=== PATIENT | male | born 1960 | race Caucasian/White ===

== ENCOUNTER → 2017-11-20 10:44 | Outpatient (CLI) | payer BC, SELFPAY ==
--- NOTE | 2017-11-20 10:44 | CDU_ITS ---
Rt. Velocities/BP Lt. Velocities/BP Prox CCA 95.6/22.9 cm/sec. Prox CCA 115.0/38.1 cm/sec. Mid CCA 96.7/28.1 cm/sec. Mid CCA 88.5/27.0 cm/sec. Dist CCA 95.6/30.5 cm/sec. Dist CCA 79.2/29.9 cm/sec. Prox ICA 71.1/17.3 cm/sec. Prox ICA 70.9/21.7 cm/sec. Mid ICA 84.4/30.5 cm/sec. Mid ICA 93.2/38.7 cm/sec. Dist ICA 88.5/33.4 cm/sec. Dist ICA 85.0/34.6 cm/sec. Rt. ICA/CCA = 88.5/96.7=0.9. Lt. ICA/CCA = 93.2/88.5=1.1. Prox ECA 99.1/29.9 cm/sec. Prox ECA 95.6/25.2 cm/sec. Rt. Vert. 46.0/16.5 cm/sec. Lt. Vert. 47.5/16.5 cm/sec. Right Extracranial There is no significant atherosclerotic plaque noted in the right common carotid artery. There is intimal thickening but no significant atherosclerotic plaque noted in the right internal carotid artery. There is intimal thickening but no significant atherosclerotic plaque noted in the right external carotid artery. Antegrade flow is noted in the right vertebral artery. Left Extracranial There is no significant atherosclerotic plaque noted in the left common carotid artery. There is heterogeneous, irregular atherosclerotic plaque noted in the left internal carotid artery. There is no significant atherosclerotic plaque noted in the left external carotid artery. Antegrade flow is noted in the left vertebral artery. There is homogeneous, smooth atherosclerotic plaque noted in the left bulb. Interpretation Summary No hemodynamically significant plague or stenosis of the right internal carotid with <50% stenosis. Minimal irregular plague at the proximal left internal carotid with <50% stenosis. Normal flow bilateral external carotids Patent and antegrade vertebrals bilaterally. Ordering Physician: William Pacheco Referring Physician: William Pacheco
== END ==
PROVIDERS: Family Provider Family Medicine; PCP Family Medicine; Visit Provider Internal Medicine Cardiovascular Disease
DX: I25.10 Atherosclerotic heart disease of native coronary artery without angina pectoris (principal); R09.89 Other specified symptoms and signs involving the circulatory and respiratory systems
CPT/HCPCS: 93880

== ENCOUNTER → 2019-02-20 | Outpatient (CLI) | payer BC, SELFPAY ==
[2019-01-23 08:33] VITALS: BMI 33.0
--- NOTE | 2019-02-20 10:33 | STRESSREP ---
Stress Test Report Exercise myocardial perfusion stress test. 58-year-old male with a history of known coronary artery disease status post previous stenting. Medications aspirin, atorvastatin, carvedilol, lisinopril. Stress protocol: Resting EKG demonstrates normal sinus rhythm with a rate of 69 bpm normal intervals are noted resting blood pressures 142/92 mmHg. The patient exercised according to regular Hill protocol for a total duration of 8 minutes completing 2 minutes into stage III of the Hill protocol to maximum heart rate attained was 153 bpm which was 94% of maximum predicted heart rate and maximum workload was 10.1 metabolic equivalents. At rest there were no ST or T wave changes noted to suggest ischemia peak exercise upsloping ST changes were noted with no meet the criteria for ischemia. No clinical angina was noted patient got short of breath test was terminated due to leg fatigue. The resting blood pressures 142/92 with a peak blood pressure 152/70 mmHg. Myocardial perfusion protocol. 14.1 mCi of technetium 99m sestamibi was injected at rest. Patient exercised according to regular Hill protocol. Peak exercise 35 mCi of technetium 99m sestamibi was injected stress images were obtained stress and rest images were reconstructed in comparing the short axis vertical and horizontal long axis. Gated images were also obtained Perfusion SPECT analysis: Review of the stress images demonstrate normal uptake of tracer noted in all areas of the myocardium the resting images similar demonstrate normal uptake of tracer noted in all areas. No reversibility is no suggest ischemia. Next Gated SPECT analysis: The gated ejection fraction is noted to be 64%. Conclusion: Normal exercise myocardial perfusion stress test at a moderate or high workload. No clinical angina noted Preserved ejection fraction.
== END | disposition home or self-care (01) ==
PROVIDERS: Family Provider Family Medicine; PCP Family Medicine; Referring Provider Internal Medicine Cardiovascular Disease; Visit Provider Internal Medicine Cardiovascular Disease
DX: I25.10 Atherosclerotic heart disease of native coronary artery without angina pectoris (principal); Z95.5 Presence of coronary angioplasty implant and graft
CPT/HCPCS: 78452; 93017; A9500; A4216

== ENCOUNTER → 2020-02-04 16:25 | Outpatient (CLI) | payer BC, SELFPAY ==
[2020-02-04 14:29] VITALS: BMI 33.0
[2020-02-04 17:14] LABS: Absolute Lymphocyte Count 3.16 X10^3/uL (0.83-4.51); Absolute Neutrophil Count 7.5 X10^3/uL (2.0-7.7); Basophil# 0.13 X10^3/uL; Eosinophil# 0.84 X10^3/uL; Eosinophils% 6.6 % (0-5); Hematocrit 47.8 % (40-54); Hemoglobin 15.6 g/dL (13.0-16.5); Lymphocyte # 3.16 X10^3/ul (4.0); Lymphocyte % 24.9 % (19-41); Mean Corp Hgb Conc 32.6 g/dL (32-36); Mean Corpuscular Hgb 29.4 pg (27.0-32.0); Mean Corpuscular Volume 90.2 fL (80-94); Mean Platelet Vol. 10.7 fl (6.2-12.0); Monocyte# 1.05 X10^3/uL; Monocyte% 8.3 % (0-10); NRBC Flagged by Analyzer 0 % (0-5); Neutrophil # 7.46 X10^3/uL (2.7-7.7); Neutrophil % 58.9 % (47-70); Platelet Count 375 K/mm3 (150-450); RBC Distribution Width CV 12.6 % (11.6-14.6); RBC Distribution Width SD 41.5 fl (35.1-43.9); White Blood Count 12.7 K/mm3 (4.4-11.0)
[2020-02-04 17:57] LABS: AST(SGOT) 37 U/L (15-37); Alanine Aminotransfer ALT/SGPT 54 U/L (16-61); Albumin, Serum 3.6 g/dL (3.2-5.0); Alkaline Phosphatase 115 U/L (45-117); Anion Gap 5 (5-15); BUN 12 mg/dL (7-18); BUN/Creat Ratio 15.5 RATIO (10-20); Bilirubin, Direct 0.08 mg/dL (0.00-0.30); Calcium,Total 9.1 mg/dL (8.5-10.1); Chloride 106 mmol/L (98-107); Cholesterol 104 mg/dL (200); Creatinine, Serum 0.77 mg/dL (0.70-1.30); EST Glomerular Filtration Rate 109 mL/min (>60); Est Glom Filt Rate - Afr Amer 132 mL/min (>60); Globulin 3.5 g/dL (2.2-4.2); Glucose 95 mg/dL (74-106); High Density Lipoprotein 29 mg/dL; Potassium 4.4 mmol/L (3.5-5.1); Protein, Total 7.1 g/dL (6.4-8.2); Sodium Level 140 mmol/L (136-145); Triglycerides 330 mg/dL; Very Low Density Lipoprotein 66 mg/dL (5-40)
== END ==
PROVIDERS: PCP Family Medicine; Referring Provider Internal Medicine Cardiovascular Disease; Visit Provider Internal Medicine Cardiovascular Disease
DX: E78.00 Pure hypercholesterolemia, unspecified (principal); Z95.5 Presence of coronary angioplasty implant and graft
CPT/HCPCS: 36415; 80048; 80061; 80076; 85025

== ENCOUNTER → 2020-02-19 | Outpatient (CLI) | payer BC, SELFPAY ==
[2020-02-04 14:29] VITALS: BMI 33.0
--- NOTE | 2020-02-19 10:07 | STRESSREP ---
Stress Test Report Exercise myocardial perfusion stress test. 59-year-old male with a history of previous right coronary artery stenting and left anterior descending artery stenting. Stress protocol: Resting EKG demonstrates normal sinus rhythm with a rate of 69 bpm normal intervals are noted resting blood pressure is 114/82 mmHg. The patient exercised according to the regular Hill protocol for a total duration of 7 minutes and 31 seconds completing 1 minute and 31 seconds into stage III of the Hill protocol. The maximum heart rate attained was 144 bpm which was 89% of maximum predicted heart rate the maximum workload was 9.3 metabolic equivalents. The patient maintained sinus rhythm throughout the recording. At rest there were no ST or T wave changes noted to suggest ischemia at peak exercise upsloping ST changes only were noted with no meet the criteria for ischemia. No clinical angina was noted. The test was terminated due to fatigue and dyspnea. The resting blood pressure was 114/82 with a peak blood pressure 160/72 mmHg. Myocardial perfusion protocol. 14.7 mCi of technetium 99m sestamibi was injected at rest. Patient exercised according to regular Hill protocol. At peak exercise 44.5 mCi of technetium 99m sestamibi was injected stress images were obtained stress and rest images were reconstructed and compared in the short axis vertical long horizontal long axis. Gated images were also obtained per Perfusion SPECT analysis: Review of the stress images demonstrate normal uptake of tracer noted in all areas of the myocardium the resting images similar demonstrate normal uptake of tracer noted in all areas of the myocardium. No reversibility is noted to suggest ischemia no previous infarct is noted. Gated SPECT analysis. The gated ejection fraction is 68%. Conclusion: Normal exercise myocardial perfusion stress test at a high workload. No clinical angina noted. Good blood pressure response to exercise. Preserved ejection fraction.
== END | disposition home or self-care (01) ==
PROVIDERS: PCP Family Medicine; Referring Provider Internal Medicine Cardiovascular Disease; Visit Provider Internal Medicine Cardiovascular Disease
DX: I25.10 Atherosclerotic heart disease of native coronary artery without angina pectoris (principal); I10 Essential (primary) hypertension; Z95.5 Presence of coronary angioplasty implant and graft
CPT/HCPCS: 78452; 93017; A9500; A4216

== ENCOUNTER → 2021-12-16 | Outpatient (CLI) | payer BC, SELFPAY ==
[2021-12-16 10:46] LABS: Hematocrit 46.4 % (40-54); Hemoglobin 15.6 g/dL (13.0-16.5); Mean Corp Hgb Conc 33.6 g/dL (32-36); Mean Corpuscular Hgb 30.1 pg (27.0-32.0); Mean Corpuscular Volume 89.6 fL (80-94); Mean Platelet Vol. 10.7 fl (6.2-12.0); Platelet Count 352 K/mm3 (150-450); RBC Distribution Width SD 42.5 fl (35.1-43.9); Red Blood Count 5.18 M/mm3 (4.6-6.2); White Blood Count 12.4 K/mm3 (4.4-11.0)
[2021-12-16 11:49] LABS: ALB/GLOB Ratio 1.3 RATIO (0.9-2.4); AST(SGOT) 19 U/L (15-37); Alanine Aminotransfer ALT/SGPT 52 U/L (16-61); Albumin, Serum 3.9 g/dL (3.2-5.0); Alkaline Phosphatase 98 U/L (45-117); Anion Gap 1 (5-15); BUN 12 mg/dL (7-18); BUN/Creat Ratio 14.8 RATIO (10-20); Calcium,Total 9.5 mg/dL (8.5-10.1); Chloride 109 mmol/L (98-107); Creatinine, Serum 0.81 mg/dL (0.70-1.30); EST Glomerular Filtration Rate 103 mL/min (>60); Est Glom Filt Rate - Afr Amer 124 mL/min (>60); Globulin 3.1 g/dL (2.2-4.2); Glucose 92 mg/dL (74-106); Potassium 4.2 mmol/L (3.5-5.1); Sodium Level 140 mmol/L (136-145); Thyroid Stim Hormone (TSH) 0.87 uIU/mL (0.358-3.74)
[2021-12-18 08:30] LABS: Vitamin B12 1851 pg/mL (211-911)
[2021-12-28 16:40] LABS: Vitamin B1, Thiamine 179.1 nmol/L (66.5-200.0)
== END | disposition home or self-care (01) ==
LOC: LAB 10:25
PROVIDERS: PCP Family Medicine; Referring Provider Psychiatry & Neurology Neurology; Visit Provider Psychiatry & Neurology Neurology
DX: R20.2 Paresthesia of skin (principal); G56.90 Unspecified mononeuropathy of unspecified upper limb
CPT/HCPCS: 36415; 80053; 82607; 82746; 84425; 84443; 85027

== ENCOUNTER → 2022-01-22 | Outpatient (CLI) | payer BC, SELFPAY ==
--- NOTE | 2022-01-22 17:09 | NEURO ---
NCS and/or EMG Patient Report Ordering Doctor: Wally Silva DATE OF SERVICE: 01/22/22 Indication: Tingling and numbness in the left scalp, arm and leg since COVID-19 infection in Fall 2020. Of note, symptom severity has improved spontaneously to a degree in recent months. Findings: Nerve conduction studies were performed in the right and left upper extremities. The left median motor study recording the abductor pollicis brevis showed a normal amplitude, normal distal latency and normal conduction velocity. The left ulnar motor study recording the abductor digiti minimi showed a normal amplitude, normal distal latency and normal conduction velocity. No conduction block or focal slowing was present across the elbow. The left median sensory response recording digit two showed a normal amplitude, latency and conduction velocity. The left ulnar sensory response recording digit five showed a normal amplitude, latency and conduction velocity. The left radial sensory response recording over the extensor snuff box showed a normal amplitude, latency and conduction velocity. Left median-ulnar lumbrical / interosseous motor latencies showed a normal median latency compared to the ulnar. Needle EMG of the left upper extremity and cervical paraspinal muscles was performed. No denervation was seen in any muscle. All motor unit morphology, activation and recruitment patterns were normal. Impression: This is a normal study. There is no electrophysiologic evidence of cervical radiculopathy, brachial plexopathy or other entrapment neuropathy in the left extremity. Aurelio Grey D.O. Multi Select Codes Neurology Neurology Interp Codes: 84914-30 Musc test done w/n test comp (interp) and 44487-67 Nrv cndj test 7-8 studies (interp)
== END | disposition home or self-care (01) ==
LOC: PSN 16:03
PROVIDERS: PCP Family Medicine; Visit Provider Psychiatry & Neurology Neurology
DX: G56.90 Unspecified mononeuropathy of unspecified upper limb (principal); R20.2 Paresthesia of skin; M54.2 Cervicalgia
CPT/HCPCS: 95886; 95910

== ENCOUNTER 2022-02-05 17:00 | Outpatient (RCR) | payer BC, SELFPAY ==
--- NOTE | 2021-12-26 10:52 | HP.PTEVAL_ITS ---
Patient's Visit Information SIRISHA MCALLISTER is a 61 year old M referred to Physical Therapy by Dr. Wally Silva MD with a diagnosis of Gait Abnormality. Date of Evaluation: 12/26/21 Physical Therapist: Mayda Palacio DPT - Visit Plan Frequency: 2x /Week Duration: 4 Weeks Plan: Balance Assessment- 2x 4 weeks- for LE and core strength/stabilization, proprioception, flex and functional mobility - Subjective Patient reports that his medical doctor is part of in [place]- has a few MRI's with readings of potential CVA early this year. So he suggested a neurologist- he saw Dr. Silva- his told the MD about his balance issues and neck issues. He has had neck issues for years- nothing he can't live with. He was told he needs to do PT before he can have more tests. He has N/T the whole left side including his face, arms, hands, torso and leg. He always has some but the degree varies. This has been going on for about 4 years- started in the face and has progressed to the whole left side since (Apr). He has n o ideas on what changes his symptoms-it can last up to 4 hours- there is nothing he can do to change it. No pain associated its just N/T. 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 The last time it happened was 6 weeks ago. No falls recently but does have a lot of balance issues. Balance issues are all the time. His legs and knees lock up- he feels frozen in position and it takes awhile for the body to listen to the brain to move. No cane or walker. They ran and MRI and ultrasound of the brain- MRI showed possible stroke. His issue he feels is his balance and the numbness. He normally has flare ups of the N/T every 2-3 weeks. No change with position. 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 Fully with ADL's- sometimes he struggles with putting on his sock and shoes. Balance he can lose it any direction and he catches himself with his hand. His reports that he walks very different then he use to. No other specialists just neurology. Was given pain medication which he does not take anymore because he does not pain. Sleep: not disturbed. No physical exercise on a daily basis- is outdoors doing things in the summer. Reports KINNEY, blurred vision and dizziness intermittent. PMHx/Meds: no changes since neuro appt. - Objective Posture: FH, RS- can correct with verbal cues but does not maintain. Gait: slightly antalgic- increased toe out on the left LE- no AD. HR/TR: able with UE A. Stairs: asc/desc 8 recip with 2 HR for safety- very slow to turn around due to balance and freezing episode- poor control with descent- toes turned out on left. Balance: Tandem Stance: required UE A to obtain position- improve with right LE in front. Balance with eyes closed and narrow SYLVESTER was poor with righting required by PT and // bars. Backwards: very slow and cautious. TUG Test: see score- freezing episode when turning to come the opposite direction and reached out for the wall to steady himself. ROM: WFL in all planes. Palpation: not tender. Sensation: WFL to gross touch in bilateral UE and LE. Reflex: Right: WFL Left: Patellar: diminished Achilles: absent. Strength: Cervical: 4+/5, Scap: fair plus, Shoulder: Right: 4+/5 throughout, Left: Flexion/abd: 4/5, IR/ER: 4+/5, Elbow: Bilateral 4+/5, Wrist: 5/5 Right 4/5 Left, Otolaryngology Nurse: Right Handed Dominate: 80 lbs Left: 60 lbs. Core: fair, Hip: Left: flex: 4-/5, Right: 4+/5, Abd/Add: 4+/5 bilateral, IR/ER: 4+/5, Knee: 5/5 Ankle: Left: 4+/5 Right: 5/5. Flex: HS: severe, Gastroc: moderate - Balance/Special Test Scores Functional Gait Assessment Score: 18 % Disability: 40.0000 Oswestry Neck Score: 2 TUG Test Time Seconds: 18 - Goals Goal 1:: Patient will be I with HEP and progression Goal Time Frame: 4-6 Weeks Goal 2:: Patient will asc/desc 8 stair recip with 1 HR safely Goal Time Frame: 4-6 Weeks Goal 3:: Patient will improve his TUG test to under 10 sec with LRD Goal Time Frame: 4-6 Weeks Goal 4:: Patient will increase his FGA to WFL for his age Goal Time Frame: 4-6 Weeks - Rehabilitation Potential Physical Therapy Diagnosis: Patient presents with hypomobility- he has decreased LE and core strength/stabilization, proprioception, flex and muscular endurance leading to abnormal gait and inability to perform ADL's. Rehabilitation Potential: Fair - Anticipated Interventions Patient/Client Instruction: Educate patient on: Benefits of Fitness Program Therapeutic Exercise to Include: Strength training, Endurance training, Balance training, Coordination, Agility training, Body mechanics, Postural training, Flexibilty training, Gait and locomotor training, Neuromotor development, Dynamic Lumbar Stabilization Thank you for the opportunity to evaluate your patient. For Medicare and Medicare HMO plans, please review the plan of care and approve it. It will need to be FAXED BACK to us at [phone] for Medicare purposes. For Medicare only, by signing this I certify the plan of care. Please let me know if there are questions or concerns regarding this plan of care. Physician Signature: Date:
--- NOTE | 2021-12-26 13:17 | HP.OTEVAL ---
Patient's Visit Information SIRISHA MCALLISTER is a 61 year old M, referred to Occupational Therapy by Dr. Wally Silva MD, with a diagnosis of cervicalgia, unspecified neuropathy, paresthesia of skin. Date of Evaluation: 12/26/21 Occupational Therapist: Amelia Good, IDAR/L, CHT - Subjective Patient reports that his medical doctor is part of in [place]- has a few MRI's with readings of potential CVA early this year. So he suggested a neurologist- he saw Dr. Silva- his told the MD about his balance issues and neck issues. He has had neck issues for years- nothing he can't live with. He was told he needs to do PT before he can have more tests. He has N/T the whole left side including his face, arms, hands, torso and leg. He always has some but the degree varies. This has been going on for about 4 years- started in the face and has progressed to the whole left side since (Apr). He reported that his did not want him to go to hospital for treatment and that his oxygen level was low for a couple of days. He has no ideas on what changes his symptoms-it can last up to 4 hours- there is nothing he can do to change it. No pain associated its just N/T. 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 The last time it happened was 6 weeks ago. No falls recently but does have a lot of balance issues. Balance issues are all the time. His legs and knees lock up- he feels frozen in position and it takes awhile for the body to listen to the brain to move. No cane or walker. They ran and MRI and ultrasound of the brain- MRI showed possible stroke. His issue he feels is his balance and the numbness. He normally has flare ups of the N/T every 2-3 weeks. No change with position. 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 Fully with ADL's- sometimes he struggles with putting on his sock and shoes. Balance he can lose it any direction and he catches himself with his hand. His reports that he walks very different then he use to. No other specialists just neurology. Was given pain medication which he does not take anymore because he does not pain. Sleep: not disturbed. No physical exercise on a daily basis- is outdoors doing things in the summer. PMHx/Meds: no changes since neuro appt. [ End ] - ADLs Dressing: Socks Comments: difficulty Comments: prefers that he not use sharp in kitchen secondary to poor balance Comments: gets a little tiresome folding clothing standing Comments: no difficulties using riding stone cutter zero turn Comments: pt. states he does not have difficulties with basic ADL tasks except for with donning socks. pt. reports he gets motion sickness. - Objective pt sits rolled shoulders and head forward - ROM ROM Comments: All WFL - Strength Shoulder: R 28. 7# L 23# Elbow: R 15.5 # L 10.9# Neurology Manager: R 60#, L 45# Strength Comments: R handed - Sensation Thumb: L 3.61 diminished light touch R 3.84 diminished protective sensation Index: L & R 3.61 diminished light touch Middle: L 3.61 diminished light touch R 3.84 diminished protective sensation Ring: L & R 3.61 diminished light touch Little: L & R 3.84 diminished protective sensation Sensation Comments: sensation is within normal limits in bilateral hands - Nine Hole Peg Right: 27.48 seconds Left: 36.21 seconds Comments: left below average for his age - Quick DASH-Disab of Arm,Shoulder& Hand Quick DASH Score: 23.3325 - Goals Goal:: Pt. will verbalize understanding of HEP for nerve glides and stretching by end of eval. Pt. will understand how changing his home office to be ergonomically correct can reduce neck strain and pulling of neck/trap muscles by end of eval. - Rehabilitation General Assessment: Pt is being evaluated for cervicalgia, unspecified neuropathy, paresthesia of skin by Dr. Silva. Pt. reported he has had N/T for about 4 years, worse since Covid in Apr 2021. Educated pt. on ergonomic positioning for work, radial nerve glides and postural stretching exercises. Also stressed the importance of reducing stress in his personal life (house full of people, working, 9-10 hours a day). Pt. reporting that he will participate in PT but has declined need for continued OT services at this time. Therapy session was directly supervised and doc. reviewed and approved by Ameliajil VILLATORO, CHT. - Visit Plan TEXT: Thank you for the opportunity to evaluate your patient. For Medicare and Medicare HMO plans, please review the plan of care and approve it. It will need to be FAXED BACK to us at [phone] for Medicare purposes. Please let me know if there are questions or concerns regarding this plan of care. Physician Signature: Date:
--- NOTE | 2022-01-03 18:23 | HP.PTCOM ---
PT Communication Note 01/03/[address] Wally Silva MD , Thank you for the referral of Rigo Torres to our clinic. He was tested on our Flared3Dom Balance Machine today and enclosed the results. On the Sensory Organization Test (SOT) he scored low with somatosensory, visual, and vestibular inputs. He is more ankle dominant than hip dominant which is higher level functioning. On the Motor Control Test (MCT) his overall reaction time is slower than other people in his age group. On the Limits of Stability Test (LOS) he had slightly decreased ability to weight shift FW. We will incorporate somatosensory, vestibular, and Visual inputs to his balance training here in the clinic. Thank you for the referral of Rigo to our clinic Sincerely, KAVITA Ramos Contact Information
--- NOTE | 2022-02-05 17:15 | HP.PTDCSUM ---
It has been my pleasure to treat SIRISHA MCALLISTER referred by Dr. Wally Silva MD, with the diagnosis of Gait Abnormality for a total of 7 visit(s). Discharge Date: Please see the following information for a summary of their discharge status. Subjective: Patient reports that he is not losing his balance as much. Still has some tightness in his neck but he has been having that for years. He reports that if he goes to the left he loses his balance but 85% of back to normal. He has had one episode of the stuck version. He feels that he can do things at home independently. His dizziness has been much better lately. Goes back to the MD Mar 13. He feels that he is in a state that he is safer and more mobile. % Improvement: 85 Objective/Function: Posture: fair throughout Gait: no deviation noted HR/TR: able with UE A. Stairs: asc/desc 8 recip with no HR- did have one episode of freezing but was able able to correct without UE A and continue down the stairs. Balance: Tandem Stance: required no UE A to obtain position-and can hold for 5 seconds. Balance with eyes closed and narrow SYLVESTER was fair without LOB. TUG Test: see score- mild freezing episode when turning to come the opposite direction but was able to right himself. ROM: WFL in all planes. Palpation: not tender. Sensation: WFL to gross touch in bilateral UE and LE. Strength: Scap: fair plus, Core: fair, Hip: 4+/5 throughout, Knee: 4+/5, Ankle: 5/5 Flex: HS: moderate, Gastroc: moderate Goal 1:: Patient will be I with HEP and progression Goal Progress: Goal Met Goal 2:: Patient will asc/desc 8 stair recip with 1 HR safely Goal Progress: Goal Met Goal 3:: Patient will improve his TUG test to under 10 sec with LRD Goal Progress: Goal Met Goal 4:: Patient will increase his FGA to WFL for his age Goal Progress: Progressing Plan: 02/05/22: Discharge- continue with HEP- educated on importance of continuation of exercise and movement for safety and balance. Balance Assessment- ADD to POC balance on static ground and compliant surfaces, vestibluar inputs, visual inputs and weight shifting FW. 2x 4 weeks- for LE and core strength/stabilization, proprioception, flex and functional mobility If there are questions or concerns regarding this patient's physical therapy, please feel free to call me at [phone]. Thank you for the referral of this patient. Sincerely, DON StarkeyT Balance/Gait/Functional tests - Balance/Special Test Scores Functional Gait Assessment Score: 25 % Disability: 16.6700 Oswestry Neck Score: 13 TUG Test Time Seconds: 10.2 Tug Test: <10 sec.=free mobile 30 Second Chair Rise Test Seconds: 10
== END 2022-02-05 19:00 | disposition home or self-care (01) ==
LOC: PT 17:00
PROVIDERS: PCP Family Medicine; Referring Provider Psychiatry & Neurology Neurology; Visit Provider Psychiatry & Neurology Neurology
DX: R26.9 Unspecified abnormalities of gait and mobility (principal); R20.2 Paresthesia of skin; I67.9 Cerebrovascular disease, unspecified; M54.2 Cervicalgia; G56.90 Unspecified mononeuropathy of unspecified upper limb
CPT/HCPCS: 97110; 97140; 97162; 97164; 97165; 97750

== ENCOUNTER → 2022-03-08 | Outpatient (CLI) | payer BC, SELFPAY ==
--- NOTE | 2022-03-08 15:55 | RAD_ITS ---
INDICATION: cad EXAMINATION: Frontal and lateral views of the chest. COMPARISON: None. FINDINGS: Frontal and lateral views of the chest were obtained. The cardiac silhouette is not enlarged. No confluent airspace disease. No pleural effusion or pneumothorax. RAD/Chest PA and Lateral IMPRESSION: No acute pulmonary disease. Electronically Signed: Jd Leija MD at 8:03 EDT ,
[2022-03-08 16:09] LABS: Absolute Lymphocyte Count 3.79 X10^3/uL (0.83-4.51); Absolute Neutrophil Count 7.2 X10^3/uL (2.0-7.7); Basophil# 0.16 X10^3/uL; Basophil% 1.2 % (0-1); Eosinophils% 6.7 % (0-5); Hematocrit 47.1 % (40-54); Hemoglobin 15.7 g/dL (13.0-16.5); Lymphocyte # 3.79 X10^3/ul (0.83-4.51); Lymphocyte % 28.3 % (19-41); Mean Corp Hgb Conc 33.3 g/dL (32-36); Mean Corpuscular Hgb 30.4 pg (27.0-32.0); Mean Corpuscular Volume 91.3 fL (80-94); Mean Platelet Vol. 10.5 fl (6.2-12.0); Monocyte# 1.33 X10^3/uL; Monocyte% 9.9 % (0-10); NRBC Flagged by Analyzer 0 % (0-5); Neutrophil # 7.15 X10^3/uL (2.7-7.7); Neutrophil % 53.6 % (47-70); Platelet Count 357 K/mm3 (150-450); RBC Distribution Width CV 13.1 % (11.6-14.6); RBC Distribution Width SD 44.1 fl (35.1-43.9); Red Blood Count 5.16 M/mm3 (4.6-6.2); White Blood Count 13.4 K/mm3 (4.4-11.0)
[2022-03-08 16:26] LABS: Anion Gap 4 (5-15); BUN 13 mg/dL (7-18); BUN/Creat Ratio 13.8 RATIO (10-20); Calcium,Total 9.5 mg/dL (8.5-10.1); Chloride 109 mmol/L (98-107); Creatinine, Serum 0.94 mg/dL (0.70-1.30); EST Glomerular Filtration Rate 86 mL/min (>60); Est Glom Filt Rate - Afr Amer 104 mL/min (>60); Glucose 85 mg/dL (74-106); Potassium 4.5 mmol/L (3.5-5.1); Sodium Level 143 mmol/L (136-145)
== END | disposition home or self-care (01) ==
LOC: RAD 15:50
PROVIDERS: PCP Family Medicine; Referring Provider Internal Medicine Cardiovascular Disease; Visit Provider Internal Medicine Cardiovascular Disease
DX: R07.9 Chest pain, unspecified (principal); Z95.5 Presence of coronary angioplasty implant and graft
CPT/HCPCS: 36415; 71046; 80048; 85025

== ENCOUNTER 2022-03-12 22:22 | Inpatient (IN) | payer BC, SELFPAY ==
[2022-03-12 22:23] VITALS: BP 125/83; PULSE 81; RESP 17; TEMP 36.7; O2SAT 96; BMI 33.5
--- NOTE | 2022-03-12 22:30 | EKG12_ITS ---
Test Reason : CP Blood Pressure : / mmHG Vent. Rate : 074 BPM Atrial Rate : 074 BPM P-R Int : 120 ms QRS Dur : 086 ms QT Int : 374 ms P-R-T Axes : 002 -01 010 degrees QTc Int : 415 ms Normal sinus rhythm Normal ECG Confirmed by GUMARO SINGH MD ([id number]), assignment editor RAMAN GARCIA ([id number]) on 03/13/2022 1:13:29 PM Referred By: FELICIA Confirmed By:GUMARO SINGH MD
[2022-03-12 22:47] VITALS: PULSE 78; RESP 18; O2SAT 96
[2022-03-12 23:00] VITALS: O2SAT 95
--- NOTE | 2022-03-12 23:00 | ED.VIS.CHEST ---
HPI History of Present Illness Chief Complaint: Chest Pain Informant: patient Onset/Context/Timing Onset: Today and Weeks Activity at onset: sudden Timing: Intermittent Quality: Positive for Pain and Pressure Location: Substernal Current Severity: Gone Maximum Severity: Moderate Worsened By: Exertion Relieved By: NTG Associated Symptoms: Positive for Dyspnea; Negative for Nausea, Vomiting, Diaphoresis, Cough, Fever, Lightheadedness, Acid Reflux or Palpitations Narrative Narrative: 61-year-old male history of coronary disease with 2 cardiac stents 1 done in 2017 and the last one done here 2018. History of prior hypertension and CVA. Patient has been having over the last several weeks maybe even months recurrent midsternal chest pain that is similar to his angina before he had his cardiac stents. Today had an episode while sitting at his desk at work around 830 took a sublingual nitro and resolved the pain. [place] well the rest of the day and a ninth-grade night had a similar midsternal chest pain episode that was actually more severe. Again took a nitro and is since resolved prior to arrival. He is also noticed some exertional symptoms over the last several weeks. He is scheduled to have a cardiac catheterization done next week to reevaluate him for his chest pain and his cardiac stents. Prior Similar Symptoms: Yes Recent Illness/Hospitalization: No CVD Risk Factors: Positive for Hypertension PE Risk Factors: Negative for Recent Travel/Surgery, Recent Immobilization, Prior DVT or PE, Cancer or OCP + Smoking + >/=35 TAD Risk Factors: Negative for Marfan's Syndrome [facility] Medical History Atherosclerotic heart disease of [place] coronary artery without angina pectoris Essential (primary) hypertension Hyperlipidemia Nicotine dependence Obesity Stroke Home Medications loratadine 10 mg tablet 5 mg PO DAILY 08/21/15 [History Last Taken 08/20/15] multivitamin 1 tab PO DAILY 08/21/15 [History Last Taken 08/20/15] aspirin 81 mg tablet,delayed release 81 mg PO DAILY 09/14/15 [History Last Taken 05/06/17] ascorbic acid (vitamin C) 250 mg tablet 250 mg PO DAILY 11/09/21 [History Last Taken Unknown] cholecalciferol (vitamin D3) 25 mcg (1,000 unit) capsule 25 mcg PO DAILY 11/09/21 [History Last Taken Unknown] garlic 300 mg capsule 300 mg PO DAILY 11/09/21 [History Last Taken Unknown] magnesium 250 mg tablet 250 mg PO DAILY 11/09/21 [History Last Taken Unknown] mecobalamin (vitamin B12) 5,000 mcg disintegrating tablet 5,000 mcg PO DAILY 11/09/21 [History Last Taken Unknown] omega-3 fatty acids-fish oil 300 mg-500 mg capsule (Fish Oil) 1 cap PO DAILY 11/09/21 [History Last Taken Unknown] pantoprazole 40 mg tablet,delayed release 40 mg PO QDAY #90 tabs 02/20/22 [Rx Last Taken Unknown] atorvastatin 80 mg tablet 80 mg PO QHS #90 tabs 03/08/22 [Rx Last Taken Unknown] carvedilol 3.125 mg tablet 3.125 mg PO BID #180 tabs 03/08/22 [Rx Last Taken Unknown] lisinopril 10 mg tablet 10 mg PO DAILY #90 tabs 03/08/22 [Rx Last Taken Unknown] nitroglycerin 0.4 mg sublingual tablet 0.4 mg sublingual Q5M PRN Chest Pain #25 tabs 03/08/22 [Rx Last Taken Unknown] ticagrelor 90 mg tablet 90 mg PO BID #180 tabs 03/08/22 [Rx Last Taken Unknown] Allergy/AdvReac Type Severity Reaction Status Date / Time tree and shrub pollen AdvReac Unknown Verified 03/12/22 22:25 Family History Unknown Patient adopted Surgical History History of coronary artery stent placement (05/06/17) History of tonsillectomy and adenoidectomy Social History Smoking Status: Current every day smoker tobacco type: cigarettes second hand exposure: No alcohol intake: never substance use type: does not use what type of physical activity do you participate in: none qamar/restoration: Jainism seatbelt use: always ROS ROS ED ROS Narrative Chest pain. Review of Systems ROS Unobtainable: Denies due to encephalopathy Constitutional Constitutional ED: Denies chills or fever(s) Eyes Eyes: Reports none ENT ENT ED: Denies ear pain Cardiovascular Cardiovascular: Reports as per HPI and chest pain Respiratory/Chest Respiratory/Chest: Denies cough or dyspnea Gastrointestinal Gastrointestinal: Denies abdominal pain Genitourinary Genitourinary ED: Denies dysuria Musculoskeletal Musculoskeletal: Denies arthralgias Integumentary Denies abscess Neurologic Neurologic: Denies headache(s) Psychiatric Psychiatric: Denies anxiety Endocrine Endocrinology: Denies cold intolerance Hematologic/Lymphatic Hematologic/Lymphatic: Denies easy bleeding Allergic/Immunologic Allergic/Immunologic ED: Denies mouth swelling EXAM Physical Exam Narrative Exam Narrative: 61-year-old male no acute distress vital signs stable afebrile. Currently symptom-free and pain-free. HEENT exam normal. Lungs clear. Heart regular rhythm no murmur. Abdomen soft nontender. Chest wall nontender. Moving all 4 extremities. Equal symmetrical radial pulse. Calves are nontender without edema or cords. Neurologic exam unremarkable. Const Vital Signs: 03/12/22 22:23 03/12/22 22:41 03/12/22 22:47 Temperature 98.1 F Temperature Source Temporal Pulse Rate 81 78 Respiratory Rate 17 18 Respiratory Effort Normal Non-Labored Blood Pressure 125/83 H Blood Pressure Mean 97 Pulse Ox 96 96 Oxygen Delivery Method Room Air Room Air 03/12/22 23:00 Temperature Temperature Source Pulse Rate Respiratory Rate Respiratory Effort Blood Pressure Blood Pressure Mean Pulse Ox 95 Oxygen Delivery Method Positive well nourished and well developed; Negative for cachectic, contractures or unkempt General Appearance ED: well developed and NAD; Negative for unkempt, cachectic, contractures or pallor Nutritional Appearance: Negative for cachectic HEENT Reports moist mucous membranes normocephalic and atraumatic; Negative for trauma or tenderness Eyes PERRL and EOMs intact bilaterally General Eye ED: Negative for pale conjunctiva or scleral icterus Neck no lymphadenopathy, supple and no JVD General: Negative for tenderness Chest Wall inspection of chest normal and palpation of chest normal Chest: Negative for tenderness Resp normal respiratory effort and clear to auscultation bilaterally Effort and Inspection: Negative for respiratory distress Auscultation: Negative for rales, rhonchi or wheezes Cardio regular rate, regular rhythm, S1 normal heart sound, S2 normal heart sound and no murmurs Peripheral Pulses: pulses 2+ throughout Back/Spine no CVA tenderness and no thoracic nor lumbar tenderness General Back: Negative for CVA tenderness Cervical Spine: Negative for cervical spine tenderness Extremity normal to inspection General Extremety ED: Negative for edema General Extremity: Negative for edema Neuro oriented x3 Sensorium / Orientation: awake, alert, oriented to person, oriented to place and oriented to time; Negative for confused, lethargic or stuporous Motor Exam: strength 5/5 throughout Psych mental status grossly normal Appearance: Negative for unkempt Attitude: No agitated Mood & Affect: Negative for depressed or anxious Skin no rashes or lesions noted and no wounds General Skin Exam: Negative for jaundice or pallor Rashes: No rashes noted Trauma: Negative for abrasion Heart Score History: Highly Suspicious ECG: Normal Age: >45 - <65 years Risk Factors: >/= 3 Risk Factors or History of CAD Score: 5 MDM MDM MDM Narrative Medical decision making narrative: 61-year-old with concerning midsternal chest pain is becoming more frequent and more intense. He has a history of known coronary disease and 2 prior stents. He is on Brilinta. He will undergo a cardiac work-up. He will be admitted to the hospitalist for possible cardiac cath tomorrow. I did speak to his manager nicu sonia Pacheco. Repeat exam patient doing well at 11:25 PM. His test results are unremarkable. Have already spoken to the hospitalist who is now down the emergency department evaluate the patient and he will be admitted. I did go over his test results the patient and his . They are comfortable with the plan. Lab Data Attestation: I reviewed the patient's lab results. Lab results narrative: CBC White count of 12. H&H 14 and 42. Electrolytes potassium 3.4. Gap of 5 normal BUN and creatinine. Glucose 188. Troponin 5. Chest x-ray unremarkable. Labs: Laboratory Results - last 24 hr 03/12/22 03/12/22 22:50 22:50 WBC 12.1 H RBC 4.79 Hgb 14.4 Hct 42.7 MCV 89.1 MCH 30.1 MCHC 33.7 RDW Std Deviation 42.7 RDW Coeff of Mariela 13.1 Plt Count 291 MPV 10.7 Immature Gran % (Auto) 0.800 Neut % (Auto) 58.2 Lymph % (Auto) 24.9 [place] % (Auto) 8.8 Eos % (Auto) 6.1 H Baso % (Auto) 1.2 H Absolute Neuts (auto) 7.0 Absolute Lymphs (auto) 3.01 Nucleated RBC % 0 Sodium 141 Potassium 3.4 L Chloride 110 H Carbon Dioxide 26.0 Anion Gap 5 BUN 14 Creatinine 1.10 Estim Creat Clear Calc 65.93 Est GFR (MDRD) Af Amer 87 Est GFR (MDRD) Non-Af 72 BUN/Creatinine Ratio 12.7 Glucose 188 H Calcium 9.0 Troponin I High Sens 5 Radiography Chest X-Ray - ED: 1 View, Heart, Lungs, Mediastinum, Bony Structures and No Acute Disease Diagnostic Testing: Clinical Impression(s) from Imaging Studies Chest X-Ray 03/12/22 23:05 IMPRESSION: 1. Mild stable bibasilar atelectasis. 2. No acute process noted. Electronically Signed: Connor Ray MD at 23:23 EDT , Chest x-ray, portable, single view interpreted by myself and the radiologist shows no acute abnormality. Normal cardiac silhouette mediastinum. Rhythm Strip Rhythm Strip: Sinus Rhythm Rate: 74 Ectopy: None EKG Initial EKG: Attestation: I personally reviewed and interpreted this EKG as follows: Interpretation: Sinus Rhythm and No Acute Injury Pattern Comments: NSR rate of 74. No acute signs of MS or ischemia. Discharge Plan Dx/Rx/DC Orders Clinical Impression: Chest pain, History of coronary artery disease, Chronic anticoagulation Disposition Disposition: Acute Care Hospital [facility]
[2022-03-12] MEDS: Aspirin 81 MG TAB.CHEW 324 MG PO (23:01)
--- NOTE | 2022-03-12 23:05 | RAD_ITS ---
INDICATION: chest pain EXAMINATION/TECHNIQUE: X-RAY - XR Chest 1 View COMPARISON: 03/08/2022 FINDINGS: LIFE-SUPPORT AND LINES: 1. None HEART AND VESSELS: The cardiac silhouette, pulmonary vasculature have normal appearance. No evidence of congestive failure. LUNGS AND PLEURAL SPACES: Minimal atelectasis at the lung bases with negligible change. No consolidation, no effusion. No pulmonary mass is noted. MEDIASTINUM AND HILAR REGIONS: No masses adenopathy noted. No areas of calcification. Visualized upper airway is normal in position. BONY ELEMENTS: No acute bony changes noted. RAD/Chest 1 View (Portable) IMPRESSION: 1. Mild stable bibasilar atelectasis. 2. No acute process noted. Electronically Signed: Connor Ray MD at 23:23 EDT ,
[2022-03-12 23:19] LABS: Absolute Lymphocyte Count 3.01 X10^3/uL (0.83-4.51); Anion Gap 5 (5-15); BUN 14 mg/dL (7-18); BUN/Creat Ratio 12.7 RATIO (10-20); Basophil# 0.14 X10^3/uL; Basophil% 1.2 % (0-1); Chloride 110 mmol/L (98-107); EST Glomerular Filtration Rate 72 mL/min (>60); Eosinophil# 0.74 X10^3/uL; Eosinophils% 6.1 % (0-5); Est Glom Filt Rate - Afr Amer 87 mL/min (>60); Estimated Creatinine Clearance 65.93 ml/min; Glucose 188 mg/dL (74-106); Hematocrit 42.7 % (40-54); Hemoglobin 14.4 g/dL (13.0-16.5); Lymphocyte # 3.01 X10^3/ul (0.83-4.51); Lymphocyte % 24.9 % (19-41); Mean Corp Hgb Conc 33.7 g/dL (32-36); Mean Corpuscular Hgb 30.1 pg (27.0-32.0); Mean Corpuscular Volume 89.1 fL (80-94); Mean Platelet Vol. 10.7 fl (6.2-12.0); Monocyte# 1.06 X10^3/uL; Monocyte% 8.8 % (0-10); NRBC Flagged by Analyzer 0 % (0-5); Neutrophil # 7.03 X10^3/uL (2.7-7.7); Neutrophil % 58.2 % (47-70); Platelet Count 291 K/mm3 (150-450); Potassium 3.4 mmol/L (3.5-5.1); RBC Distribution Width CV 13.1 % (11.6-14.6); RBC Distribution Width SD 42.7 fl (35.1-43.9); Red Blood Count 4.79 M/mm3 (4.6-6.2); Sodium Level 141 mmol/L (136-145); Troponin-I HS (w/2H Reflex) 5 pg/mL (3.0-78.0); White Blood Count 12.1 K/mm3 (4.4-11.0)
[2022-03-12 23:39] VITALS: BP 129/71; PULSE 72; RESP 20; TEMP 36.7; O2SAT 96
--- NOTE | 2022-03-12 23:43 | PCM.HP.STD ---
HPI - General General Date of Admission: 03/12/22 Date of Service: 03/12/22 Chief Complaint: chest pain HPI Narrative SIRISHA MCALLISTER, is a 61 M who presents to the emergency room with chest pain. Patient has significant past medical history of coronary artery disease status post 2 stents last one placed in 2018. Patient states he was working at home at approximately 8:00 this morning when he had a doubling over of chest pain for which he took a nitroglycerin and was immediately relieved. This evening around 9:00 he had a more severe pain while reaching for medicine in the cabinet and again took nitroglycerin and had relief. Patient was scheduled to have a heart catheterization next week however after speaking with cardiology patient will be admitted due to significant risk and have heart catheterization done in the morning. Currently patient is chest pain-free and denies any fevers chills nausea vomiting or diarrhea. [facility] Medical History Atherosclerotic heart disease of [place] coronary artery without angina pectoris Essential (primary) hypertension Hyperlipidemia Nicotine dependence Obesity Stroke Home Medications loratadine 10 mg tablet 5 mg PO DAILY 08/21/15 [History Last Taken 08/20/15] multivitamin 1 tab PO DAILY 08/21/15 [History Last Taken 08/20/15] aspirin 81 mg tablet,delayed release 81 mg PO DAILY 09/14/15 [History Last Taken 05/06/17] ascorbic acid (vitamin C) 250 mg tablet 250 mg PO DAILY 11/09/21 [History Last Taken Unknown] cholecalciferol (vitamin D3) 25 mcg (1,000 unit) capsule 25 mcg PO DAILY 11/09/21 [History Last Taken Unknown] garlic 300 mg capsule 300 mg PO DAILY 11/09/21 [History Last Taken Unknown] magnesium 250 mg tablet 250 mg PO DAILY 11/09/21 [History Last Taken Unknown] mecobalamin (vitamin B12) 5,000 mcg disintegrating tablet 5,000 mcg PO DAILY 11/09/21 [History Last Taken Unknown] omega-3 fatty acids-fish oil 300 mg-500 mg capsule (Fish Oil) 1 cap PO DAILY 11/09/21 [History Last Taken Unknown] pantoprazole 40 mg tablet,delayed release 40 mg PO QDAY #90 tabs 02/20/22 [Rx Last Taken Unknown] atorvastatin 80 mg tablet 80 mg PO QHS #90 tabs 03/08/22 [Rx Last Taken Unknown] carvedilol 3.125 mg tablet 3.125 mg PO BID #180 tabs 03/08/22 [Rx Last Taken Unknown] lisinopril 10 mg tablet 10 mg PO DAILY #90 tabs 03/08/22 [Rx Last Taken Unknown] nitroglycerin 0.4 mg sublingual tablet 0.4 mg sublingual Q5M PRN Chest Pain #25 tabs 03/08/22 [Rx Last Taken Unknown] ticagrelor 90 mg tablet 90 mg PO BID #180 tabs 03/08/22 [Rx Last Taken Unknown] Allergy/AdvReac Type Severity Reaction Status Date / Time tree and shrub pollen AdvReac Unknown Verified 03/12/22 22:25 Family History Unknown Patient adopted Surgical History History of coronary artery stent placement (05/06/17) History of tonsillectomy and adenoidectomy Social History Smoking Status: Current every day smoker tobacco type: cigarettes second hand exposure: No alcohol intake: never substance use type: does not use what type of physical activity do you participate in: none qamar/latter-day: Nondenominational seatbelt use: always ROS Constitutional Constitutional: Denies chills or fever(s) Eyes Eyes: Denies blurry vision ENT HEENT: Denies abnormal hearing Cardiovascular Cardiovascular: Reports chest pain Respiratory/Chest Respiratory/Chest: Reports shortness of breath at rest Gastrointestinal Gastrointestinal: Denies abdominal pain Genitourinary Genitourinary: Denies dysuria Musculoskeletal Musculoskeletal: Denies back pain Integumentary Integumentary: Denies dry skin Neurologic Neurologic: Denies abnormal gait Psychiatric Psychiatric: Denies anxiety Vital Signs Vital Signs Vital Signs: 03/12/22 22:23 03/12/22 22:41 03/12/22 22:47 Temperature 98.1 F Temperature Source Temporal Pulse Rate 81 78 Respiratory Rate 17 18 Respiratory Effort Normal Non-Labored Blood Pressure 125/83 H Blood Pressure Mean 97 Pulse Ox 96 96 Oxygen Delivery Method Room Air Room Air 03/12/22 23:00 03/12/22 23:39 Temperature 98.1 F Temperature Source Temporal Pulse Rate 72 Respiratory Rate 20 H Respiratory Effort Blood Pressure 129/71 H Blood Pressure Mean 90 Pulse Ox 95 96 Oxygen Delivery Method Room Air Weight Weight: 214 lb Body Mass Index (BMI) 33.5 Physical Exam Const oriented x3 General Appearance: cooperative and well developed HEENT normocephalic and head/scalp atraumatic Eyes PERRL Lymph Lymphatic: no lymphadenopathy noted Resp normal respiratory effort, normal air movement and clear to auscultation bilaterally Cardio regular rate, regular rhythm, S1 normal heart sound, S2 normal heart sound and no murmurs GI normal to inspection, nondistended, normoactive bowel sounds Extremity normal capillary refill Skin General Skin Exam: no breakdown Neuro CN's II-XII intact bilaterally Psych thought process normal Appearance: appropriate Results Lab / Micro Data Result Diagrams: 03/12/22 22:50 03/12/22 22:50 Labs: Laboratory Results - last 24 hr 03/12/22 22:50: WBC 12.1 H, RBC 4.79, Hgb 14.4, Hct 42.7, MCV 89.1, MCH 30.1, MCHC 33.7, RDW Std Deviation 42.7, RDW Coeff of Mariela 13.1, Plt Count 291, MPV 10.7, Immature Gran % (Auto) 0.800, Neut % (Auto) 58.2, Lymph % (Auto) 24.9, [place] % (Auto) 8.8, Eos % (Auto) 6.1 H, Baso % (Auto) 1.2 H, Absolute Neuts (auto) 7.0, Absolute Lymphs (auto) 3.01, Nucleated RBC % 0 03/12/22 22:50: Sodium 141, Potassium 3.4 L, Chloride 110 H, Carbon Dioxide 26.0, Anion Gap 5, BUN 14, Creatinine 1.10, Estim Creat Clear Calc 65.93, Est GFR (MDRD) Af Amer 87, Est GFR (MDRD) Non-Af 72, BUN/Creatinine Ratio 12.7, Glucose 188 H, Calcium 9.0, Troponin I High Sens 5 Rhythm Strip Rhythm Strip: Sinus Rhythm Rate: 74 Ectopy: None Radiology Impression Chest X-Ray 03/12/22 23:05 IMPRESSION: 1. Mild stable bibasilar atelectasis. 2. No acute process noted. Electronically Signed: Connor Ray MD at 23:23 EDT , Assessment & Plan Assessment/Plan (1) History of coronary artery disease: (2) Chest pain: (3) Nicotine dependence: PLAN: Plan 1. Unstable angina with history of coronary artery disease?admit patient to progressive care unit, make patient n.p.o. consult Dr. Pacheco for heart catheterization, cycle cardiac enzymes, repeat CBC BMP INR magnesium in a.m. would consider having platelets on standby for procedure since he is on chronic aspirin and Brilinta. We will order nitroglycerin as needed per protocol along with oxygen as needed 2. Nicotine dependence?patient refused nicotine patch 3. DVT prophylaxis?SCDs Charges/Coding Visit Charges Inpatient E&M: 04328 Init Hosp L3
[2022-03-13] VITALS (17 sets, daily range): BP systolic 118–156; BP diastolic 76–90; PULSE 57–71; RESP 16–18; TEMP 36.7–36.9; O2SAT 95–97; BMI 33.6
--- NOTE | 2022-03-13 00:43 | EKG12_ITS ---
Test Reason : PCI Blood Pressure : / mmHG Vent. Rate : 060 BPM Atrial Rate : 060 BPM P-R Int : 120 ms QRS Dur : 084 ms QT Int : 420 ms P-R-T Axes : 007 -06 003 degrees QTc Int : 420 ms Normal sinus rhythm Normal ECG Confirmed by LAWRENCE DIXON, HAYLEY ([id number]), publications editor RAMAN GARCIA ([id number]) on 03/14/2022 9:12:42 AM Referred By: Junior Confirmed By:HAYLEY BRAVO MD
[2022-03-13 00:56] LABS: Reflex Troponin-HS? (from REC) Y
[2022-03-13] MEDS: 0.9% Normal Saline 1,000 ML 75 ML IV ×2 (01:03→10:05)
[2022-03-13 01:45] LABS: Troponin-I HS 6 pg/mL (3.0-78.0)
[2022-03-13 02:34] LABS: Absolute Lymphocyte Count 3.11 X10^3/uL (0.83-4.51); Basophil# 0.12 X10^3/uL; Eosinophil# 0.78 X10^3/uL; Eosinophils% 6.8 % (0-5); Hematocrit 43.8 % (40-54); Hemoglobin 14.3 g/dL (13.0-16.5); Lymphocyte # 3.11 X10^3/ul (0.83-4.51); Mean Corp Hgb Conc 32.6 g/dL (32-36); Mean Corpuscular Hgb 29.6 pg (27.0-32.0); Mean Corpuscular Volume 90.7 fL (80-94); Mean Platelet Vol. 10.7 fl (6.2-12.0); Monocyte# 1.47 X10^3/uL; Monocyte% 12.8 % (0-10); NRBC Flagged by Analyzer 0 % (0-5); Neutrophil # 5.99 X10^3/uL (2.7-7.7); Neutrophil % 52.1 % (47-70); Platelet Count 290 K/mm3 (150-450); RBC Distribution Width CV 13.1 % (11.6-14.6); RBC Distribution Width SD 43.5 fl (35.1-43.9); Red Blood Count 4.83 M/mm3 (4.6-6.2); White Blood Count 11.5 K/mm3 (4.4-11.0)
[2022-03-13 02:49] LABS: Anion Gap 2 (5-15); BUN 12 mg/dL (7-18); BUN/Creat Ratio 15.6 RATIO (10-20); Calcium,Total 8.8 mg/dL (8.5-10.1); Chloride 114 mmol/L (98-107); Creatinine, Serum 0.77 mg/dL (0.70-1.30); EST Glomerular Filtration Rate 109 mL/min (>60); Est Glom Filt Rate - Afr Amer 132 mL/min (>60); Estimated Creatinine Clearance 94.19 ml/min; Glucose 116 mg/dL (74-106); Magnesium 2.2 mg/dL (1.6-2.6); Phosphorus 3.4 mg/dL (2.5-4.9); Potassium 3.7 mmol/L (3.5-5.1); Sodium Level 143 mmol/L (136-145)
[2022-03-13 02:51] LABS: Troponin-I HS 6 pg/mL (3.0-78.0)
[2022-03-13 03:04] LABS: Prothrombin Time (Protime)PT. 12.3 SECONDS (11.7-14.9)
[2022-03-13] MEDS: Nitroglycerin (INPATIENT USE) 0.4 MG TAB.SUBL SL (06:25)
--- NOTE | 2022-03-13 06:28 | EKG12_ITS ---
Test Reason : CP Blood Pressure : / mmHG Vent. Rate : 070 BPM Atrial Rate : 070 BPM P-R Int : 114 ms QRS Dur : 090 ms QT Int : 402 ms P-R-T Axes : -06 -03 012 degrees QTc Int : 434 ms Normal sinus rhythm Low voltage QRS Borderline ECG Confirmed by LAWRENCE DIXON, HAYLEY ([id number]), online editor RAMAN GARCIA ([id number]) on 03/14/2022 9:13:03 AM Referred By: CARRILLO Confirmed By:HAYLEY BRAVO MD
--- NOTE | 2022-03-13 06:28 | CON.PCM.CA_ITS ---
Assessment & Plan Assessment/Plan (1) Chest pain: PLAN: Patient presents for a 3 current chest pain. He had already been scheduled to undergo a left heart catheterization. Based on the above I would recommend that we proceed with a left heart catheterization risk-benefit alternatives have been explained and he understands and agrees to proceed. Addendum: Left heart catheterization demonstrated the following: Normal left main coronary artery. Left anterior descending artery previously placed stent which is patent. Left circumflex artery with mild disease Right coronary artery with 50% proximal stenosis Patient underwent IFR of the above vessel and it was essentially normal. Would suggest we continue to treat him medically. He can be discharged later today. (2) History of coronary artery stent placement: PLAN: He has previous angioplasty and stenting as noted above. The plan would be to reevaluate the above with a left heart catheterization. Depending on the findings further recommendations will be made. (3) Essential (primary) hypertension: PLAN: His blood pressure appears to be under fair control at this time and no changes will be made. (4) Hyperlipidemia: QUALIFIERS: Hyperlipidemia type: pure hypercholesterolemia Qualified Code(s): E78.00 - Pure hypercholesterolemia, unspecified; E78.0 - Pure hypercholesterolemia PLAN: He does have a history of hyperlipidemia and will continue with aggressive risk factor modification. HPI Consult Data Date of Consult: 03/13/22 HPI Narrative HPI Narrative: SIRISHA MCALLISTER, is a 61 M who presents to the emergency room with chest discomfort.? He is a pleasant gentleman with a history of known coronary artery disease status post previous angioplasty and stenting of his right coronary artery in 2015 and recent angioplasty and stenting of his left anterior descending artery with a 2.5?20 mm Promus Synergy stent in April 2017.? He says that over the last year he has had on and off chest discomfort.? Sometimes it is on the right side and lasts a few minutes and he has to take a sublingual nitroglycerin.? It has occurred with exertion before.? He remember he had had a previous stress test in February 2020 with no evidence of ischemia at a high workload.? He has also had it in the center of his chest and has radiated to the jaw and right arm. He had been seen in the office about a week ago and had previously been scheduled to undergo a left heart catheterization next week. He presented this time with chest discomfort was seen in the emergency room his EKG was unremarkable his troponins were normal. He denies symptoms of shortness of breath at rest, orthopnea, PND, sudden weight gain, or bilateral lower extremity edema. He denies chronic cough. He denies palpitations, near syncope, or syncopal episodes. He denies claudication issues. He denies fever or chills. He denies blood in urine, blood in stool, or epistaxis. He denies myalgia. He denies unexplainable fatigue. His exercise tolerance is stable. He states waking his numbness in both legs.? [facility] Medical History Atherosclerotic heart disease of [place] coronary artery without angina pectoris Essential (primary) hypertension Hyperlipidemia Nicotine dependence Obesity Stroke Home Medications loratadine 10 mg tablet 5 mg PO DAILY 08/21/15 [History Last Taken 08/20/15] multivitamin 1 tab PO DAILY 08/21/15 [History Last Taken 08/20/15] aspirin 81 mg tablet,delayed release 81 mg PO DAILY 09/14/15 [History Last Taken 05/06/17] ascorbic acid (vitamin C) 250 mg tablet 250 mg PO DAILY 11/09/21 [History Last Taken Unknown] cholecalciferol (vitamin D3) 25 mcg (1,000 unit) capsule 25 mcg PO DAILY 11/09/21 [History Last Taken Unknown] garlic 300 mg capsule 300 mg PO DAILY 11/09/21 [History Last Taken Unknown] magnesium 250 mg tablet 250 mg PO DAILY 11/09/21 [History Last Taken Unknown] mecobalamin (vitamin B12) 5,000 mcg disintegrating tablet 5,000 mcg PO DAILY 11/09/21 [History Last Taken Unknown] omega-3 fatty acids-fish oil 300 mg-500 mg capsule (Fish Oil) 1 cap PO DAILY 11/09/21 [History Last Taken Unknown] pantoprazole 40 mg tablet,delayed release 40 mg PO QDAY #90 tabs 02/20/22 [Rx Last Taken Unknown] atorvastatin 80 mg tablet 80 mg PO QHS #90 tabs 03/08/22 [Rx Last Taken Unknown] carvedilol 3.125 mg tablet 3.125 mg PO BID #180 tabs 03/08/22 [Rx Last Taken Unknown] lisinopril 10 mg tablet 10 mg PO DAILY #90 tabs 03/08/22 [Rx Last Taken Unknown] nitroglycerin 0.4 mg sublingual tablet 0.4 mg sublingual Q5M PRN Chest Pain #25 tabs 03/08/22 [Rx Last Taken Unknown] ticagrelor 90 mg tablet 90 mg PO BID #180 tabs 03/08/22 [Rx Last Taken Unknown] Allergy/AdvReac Type Severity Reaction Status Date / Time tree and shrub pollen AdvReac Unknown Verified 03/12/22 22:25 Family History Unknown Patient adopted Surgical History History of coronary artery stent placement (05/06/17) History of tonsillectomy and adenoidectomy Social History Smoking Status: Current every day smoker tobacco type: cigarettes second hand exposure: No alcohol intake: never substance use type: does not use what type of physical activity do you participate in: none qamar/restorationist: Gnosticism seatbelt use: always ROS Constitutional Constitutional: Denies chills or fever(s) Eyes Eyes: Denies blurry vision ENT HEENT: Denies abnormal hearing Cardiovascular Cardiovascular: Reports chest pain Respiratory/Chest Respiratory/Chest: Reports shortness of breath at rest Gastrointestinal Gastrointestinal: Denies abdominal pain Genitourinary Genitourinary: Denies dysuria Musculoskeletal Musculoskeletal: Denies back pain Integumentary Integumentary: Denies dry skin Neurologic Neurologic: Denies abnormal gait Psychiatric Psychiatric: Denies anxiety Physical Exam Const oriented x3 General Appearance: cooperative and well developed HEENT normocephalic and head/scalp atraumatic Eyes PERRL Lymph Lymphatic: no lymphadenopathy noted Resp normal respiratory effort, normal air movement and clear to auscultation bilaterally Cardio regular rate, regular rhythm, S1 normal heart sound, S2 normal heart sound and no murmurs GI normal to inspection, nondistended, normoactive bowel sounds Extremity normal capillary refill Skin General Skin Exam: no breakdown Neuro CN's II-XII intact bilaterally Psych thought process normal Appearance: appropriate Risk Stratification Risk Stratification Applicable: No Objective Data Vital Signs: Vital Signs Temp Pulse Resp BP Pulse Ox O2 Del Method 98.0 F 66 16 129/83 H 95 Room Air 03/13/22 06:22 03/13/22 06:25 03/13/22 06:22 03/13/22 06:25 03/13/22 06:22 03/13/22 06:22 Oxygen Delivery Method Room Air Weight: 214 lb 12.8 oz Body Mass Index (BMI) 33.6 Lab / Micro Data Result Diagrams: 03/13/22 02:27 03/13/22 02:27 Labs: Laboratory Results - last 24 hr 03/12/22 22:50: WBC 12.1 H, RBC 4.79, Hgb 14.4, Hct 42.7, MCV 89.1, MCH 30.1, MCHC 33.7, RDW Std Deviation 42.7, RDW Coeff of Mariela 13.1, Plt Count 291, MPV 10.7, Immature Gran % (Auto) 0.800, Neut % (Auto) 58.2, Lymph % (Auto) 24.9, [place] % (Auto) 8.8, Eos % (Auto) 6.1 H, Baso % (Auto) 1.2 H, Absolute Neuts (auto) 7.0, Absolute Lymphs (auto) 3.01, Nucleated RBC % 0 03/12/22 22:50: Sodium 141, Potassium 3.4 L, Chloride 110 H, Carbon Dioxide 26.0, Anion Gap 5, BUN 14, Creatinine 1.10, Estim Creat Clear Calc 65.93, Est GFR (MDRD) Af Amer 87, Est GFR (MDRD) Non-Af 72, BUN/Creatinine Ratio 12.7, Glucose 188 H, Calcium 9.0, Troponin I High Sens 5 03/13/22 01:20: Troponin I High Sens 6 03/13/22 02:27: WBC 11.5 H, RBC 4.83, Hgb 14.3, Hct 43.8, MCV 90.7, MCH 29.6, MCHC 32.6, RDW Std Deviation 43.5, RDW Coeff of Mariela 13.1, Plt Count 290, MPV 10.7, Immature Gran % (Auto) 0.300, Neut % (Auto) 52.1, Lymph % (Auto) 27.0, [place] % (Auto) 12.8 H, Eos % (Auto) 6.8 H, Baso % (Auto) 1.0, Absolute Neuts (auto) 6.0, Absolute Lymphs (auto) 3.11, Nucleated RBC % 0 03/13/22 02:27: PT 12.3, INR 1.0 03/13/22 02:27: Sodium 143, Potassium 3.7, Chloride 114 H, Carbon Dioxide 27.0, Anion Gap 2 L, BUN 12, Creatinine 0.77, Estim Creat Clear Calc 94.19, Est GFR (MDRD) Af Amer 132, Est GFR (MDRD) Non-Af 109, BUN/Creatinine Ratio 15.6, Glucose 116 H, Calcium 8.8, Phosphorus 3.4, Magnesium 2.2 03/13/22 02:27: Troponin I High Sens 6 Rhythm Strip Rhythm Strip: Sinus Rhythm Rate: 74 Ectopy: None Cardiology Labs/Tests 03/12/22 22:50: WBC 12.1 H, RBC 4.79, Hgb 14.4, Hct 42.7, MCV 89.1, MCH 30.1, MCHC 33.7, Plt Count 291, MPV 10.7, Immature Gran % (Auto) 0.800, Neut % (Auto) 58.2, Lymph % (Auto) 24.9, [place] % (Auto) 8.8, Eos % (Auto) 6.1 H, Baso % (Auto) 1.2 H, Absolute Neuts (auto) 7.0, Nucleated RBC % 0 03/12/22 22:50: Sodium 141, Potassium 3.4 L, Chloride 110 H, Carbon Dioxide 26.0, Anion Gap 5, BUN 14, Creatinine 1.10, Est GFR (MDRD) Af Amer 87, Est GFR (MDRD) Non-Af 72, BUN/Creatinine Ratio 12.7, Glucose 188 H, Calcium 9.0 03/13/22 02:27: WBC 11.5 H, RBC 4.83, Hgb 14.3, Hct 43.8, MCV 90.7, MCH 29.6, MCHC 32.6, Plt Count 290, MPV 10.7, Immature Gran % (Auto) 0.300, Neut % (Auto) 52.1, Lymph % (Auto) 27.0, [place] % (Auto) 12.8 H, Eos % (Auto) 6.8 H, Baso % (Auto) 1.0, Absolute Neuts (auto) 6.0, Nucleated RBC % 0 03/13/22 02:27: PT 12.3, INR 1.0 03/13/22 02:27: Sodium 143, Potassium 3.7, Chloride 114 H, Carbon Dioxide 27.0, Anion Gap 2 L, BUN 12, Creatinine 0.77, Est GFR (MDRD) Af Amer 132, Est GFR (MDRD) Non-Af 109, BUN/Creatinine Ratio 15.6, Glucose 116 H, Calcium 8.8, Phosphorus 3.4, Magnesium 2.2 Rhythm: EKG: ECHO: Stress Test: Cardiac Cath: PCI: CT Surgery: Holter monitor: EPS: PPM: CXR: Chest CT Scan: Radiography Diagnostic Testing: Radiology Impression Chest X-Ray 03/12/22 23:05 IMPRESSION: 1. Mild stable bibasilar atelectasis. 2. No acute process noted. Electronically Signed: Connor Ray MD at 23:23 EDT ,
--- NOTE | 2022-03-13 09:35 | PRO.PCM_ITS ---
Procedure Report Date of Procedure: 03/13/22 1. I FR proximal RCA, measured x3 within normal 0.93 2. Placement of TR band to right radial artery arteriotomy site Consent; Risk and benefits of procedure explained in detail to the patient elected to proceed informed consent obtained. Preprocedure diagnosis. This 61-year-old patient underwent cardiac catheterization by his primary generator worker Dr. Pacheco Patient had a history of recurrent chest pain x3 Had a history of CAD with prior PCI and stent of LAD and distal RCA, patient also had a history of nicotine dependence hypertension hyperlipidemia and a prior history of stroke He was on medical treatment with dual antiplatelet therapy with Brilinta and low-dose aspirin in addition he was on JASMINA inhibitor beta-vaibhav with lisinopril carvedilol and statin high-dose 80 mg The cardiac catheterization findings reviewed today by myself He had patency of LAD stent as well as the distal RCA and had a lesion in the proximal RCA which is intermediate lesion of around 50%. Patient has been limited in activity he does not walk and based on his clinical presentation we decided to proceed for evaluation of the proximal RCA with IFR. Interventional equipment used; 1. 6 Bulgarian JR4 guide 2. IFR wire Medication used in the Programmer Developer; Patient already given the Brilinta and aspirin He was given heparin 3000 through the sheath and 7000 IV patient BMI is 33.6 kg over meter Squire's weight is 214 pounds and his height is 5 feet 7 age. Procedure in detail; The fluoroscopic guidance we proceed with a 6 Bulgarian JR4 guide advanced ascending aorta cannulated the right coronary ostium without difficulty then we followed by the IFR wire which normalized and across the lesion and IFR has been checked x3 which within normal IFR measuring 0.93 Patient remained stable clinically There is no change in the cardiac/vascular sonographer, blood pressure is stable as well as oxygen saturation and no symptoms of chest pain reported Conclusion recommendations; Intermediate lesion in the proximal RCA measured by IFR which is normal Recommendation; Patient to continue current treatment To follow-up with the primary generator worker Dr. Pacheco to discuss further cardiac care plan. TR band applied to right radial artery arteriotomy site. Patient is scheduled for phase 1 cardiac rehab program here at [facility]. There is no immediate complication in the Programmer Developer Danika Walton MD,[facility]
--- NOTE | 2022-03-13 10:00 | EKG12_ITS ---
Test Reason : cp admit Blood Pressure : / mmHG Vent. Rate : 066 BPM Atrial Rate : 066 BPM P-R Int : 116 ms QRS Dur : 092 ms QT Int : 402 ms P-R-T Axes : -04 -04 009 degrees QTc Int : 421 ms Normal sinus rhythm Normal ECG Confirmed by LAWRENCE DIXON, HAYLEY ([id number]), web editor RAMAN GARCIA ([id number]) on 03/14/2022 9:13:31 AM Referred By: Confirmed By:HAYLEY BRAVO MD
--- NOTE | 2022-03-13 10:20 | CASEMGMT ---
RN CM Face to Face with patient for initial transition planning/care coordination assessment. RN CM introduced self and role at [facility]. Patient lying in bed, alert and oriented, at bedside. Patient willing to participate in assessment and is able to answer all questions appropriately. Care providers, pharmacy, and demographics verified. Patient wishes to discharge home, denies need for home health at this time. Patient states he has no further needs or concerns at this time. CM to follow for discharge planning needs that may arise. PCP: Rosalie Specialists: [facility] Insurance: Izzy Prescription Benefit: yes Living Will/HPOA: none LNOK: Living Arrangements: Patient lives with in a 2 story home with bed and bath on first floor. Patient has 2 steps and railing to enter the home. Patient states he is independent at home. Transportation: self, DME/HHC: Patient denies DME in the home. No previous HHC Disposition Plan: Patient to discharge home with family support and follow-up plans in place. Luma SOSA, RN, CM
--- NOTE | 2022-03-13 11:56 | PCM.DC ---
Discharge Instructions Diet Discharge Diet: Low fat / Low cholesterol Activity Discharge Activity: Return to Normal Activity Additional Activity Instructions:: Follow post cath instructions Dressing / Incision Call your doctor if your incision/area has: Continuous Slow Oozing, Sudden Increased Bleeding, Increased Pain/ Swelling, Increased Redness, Foul Smelling Discharge and Swelling at the incision site Call your doctor if you observe: Shortness of breath, Dizziness and Chest pain Follow Up Care Test Results: Test results from this visit will be discussed in further detail at your follow-up appointment, if applicable. Discharge Plan Admission Admit Date/Time: 03/12/22 23:48 Primary Reason for Your Visit: Chest pain Attending Provider: Sandro Hernandez Primary Care Provider: Geoffrey Wiggins Consulting Providers: William Pacheco ; Desmond Gonsalez Instructions Additional Instructions / Restrictions: Recommend discussing Buspirone with PCP if you continue to have uncontrolled anxiety. Discharge Orders/Prescriptions Prescriptions: Continued atorvastatin 80 mg tablet 80 mg PO QHS Qty: 90 3RF carvedilol 3.125 mg tablet 3.125 mg PO BID Qty: 180 4RF lisinopril 10 mg tablet 10 mg PO DAILY Qty: 90 3RF nitroglycerin 0.4 mg tablet, sublingual 0.4 mg SUBLINGUAL Q5M PRN (Reason: Chest Pain) Qty: 25 6RF ticagrelor 90 mg tablet 90 mg PO BID Qty: 180 3RF Fish Oil 300-500 mg capsule 1 cap PO DAILY cholecalciferol (vitamin D3) 25 mcg (1,000 unit) capsule 25 mcg PO DAILY magnesium 250 mg tablet 250 mg PO DAILY ascorbic acid (vitamin C) 250 mg tablet 250 mg PO DAILY mecobalamin (vitamin B12) 5,000 mcg tablet,disintegrating 5,000 mcg PO DAILY garlic 300 mg capsule 300 mg PO DAILY multivitamin 1 EACH tablet 1 tab PO DAILY loratadine 10 MG tablet 5 mg PO DAILY aspirin 81 MG tablet,delayed release (DR/EC) 81 mg PO DAILY pantoprazole 40 mg tablet,delayed release (DR/EC) 40 mg PO QDAY Qty: 90 3RF Referrals / Follow Up: Geoffrey Wiggins MD [Primary Care Provider] - In 1 Week Joce Ruiz NP, SENIOR CONSTRUCTION MANAGER-C [Med Staff - [facility] Practice [facility]] - Within 1 Month Disposition Disposition (needs filled in before D/C Order can be placed): Home, Self Care
--- NOTE | 2022-03-13 12:02 | PCM.DC.SUM ---
Documented by User: Chiquita Williamson NP, RESEARCH ELECTRICIAN-C 03/13/22 12:12 Providers Date of Admission: 03/12/22 Date of Discharge: 03/13/22 Primary Care Physician: Dr. Geoffrey Wiggins MD Consultations 03/13/22 00:02 Consult: Cardiology Routine Consulting Provider: William Pacheco Reason for Consult: heart cath EMERGENT Consult: Yes MD Notified: Yes Date Notified: 03/12/22 Time Notified: 23:51 Method of Notification: Verbal Reason For Visit: ACUTE CORONARY SYNDROME Diagnosis Discharge Diagnosis (1) Chest pain: Status: Acute Code(s): R07.9 - Chest pain, unspecified (2) History of coronary artery stent placement: Status: Resolved Code(s): Z95.5 - Presence of coronary angioplasty implant and graft (3) Essential (primary) hypertension: Status: Chronic Code(s): I10 - Essential (primary) hypertension (4) Hyperlipidemia: Status: Chronic Code(s): E78.5 - Hyperlipidemia, unspecified Qualifiers: Hyperlipidemia type: pure hypercholesterolemia Qualified Code(s): E78.00 - Pure hypercholesterolemia, unspecified; E78.0 - Pure hypercholesterolemia Medications at Discharge Home Medications loratadine 10 mg tablet 5 mg PO DAILY 08/21/15 multivitamin 1 tab PO DAILY 08/21/15 aspirin 81 mg tablet,delayed release 81 mg PO DAILY 09/14/15 ascorbic acid (vitamin C) 250 mg tablet 250 mg PO DAILY 11/09/21 cholecalciferol (vitamin D3) 25 mcg (1,000 unit) capsule 25 mcg PO DAILY 11/09/21 garlic 300 mg capsule 300 mg PO DAILY 11/09/21 magnesium 250 mg tablet 250 mg PO DAILY 11/09/21 mecobalamin (vitamin B12) 5,000 mcg disintegrating tablet 5,000 mcg PO DAILY 11/09/21 omega-3 fatty acids-fish oil 300 mg-500 mg capsule (Fish Oil) 1 cap PO DAILY 11/09/21 pantoprazole 40 mg tablet,delayed release 40 mg PO QDAY #90 tabs 02/20/22 atorvastatin 80 mg tablet 80 mg PO QHS #90 tabs 03/08/22 carvedilol 3.125 mg tablet 3.125 mg PO BID #180 tabs 03/08/22 lisinopril 10 mg tablet 10 mg PO DAILY #90 tabs 03/08/22 nitroglycerin 0.4 mg sublingual tablet 0.4 mg sublingual Q5M PRN Chest Pain #25 tabs 03/08/22 ticagrelor 90 mg tablet 90 mg PO BID #180 tabs 03/08/22 Hospital Course Operations None Procedures Cardiac catheterization Summary of Care Provided Hospital Course: Patient is a 61-year-old male admitted 03/12/2022 due to chest pain. 1. Chest pain- ACS ruled out. Troponin negative. Patient underwent heart cath. Intermediate lesion in the proximal RCA measured by IFR which was normal. Continue medical management. Continue outpatient follow-up with cardiology. Patient's feels his symptoms may be related to recent increased stress/anxiety. Discussed options and outpatient follow-up. Follow-up with PCP and cardiology at discharge. 2. CAD with history of angioplasty and stenting-continue aspirin, statin, Brilinta, lisinopril, carvedilol. 3. Hypertension-stable, continue home regimen. 4. Hyperlipidemia-continue statin. 5. GERD-continue PPI. 6. Tobacco dependence-encouraged cessation. 7. Anxiety-patient reports situational related to current home situation including elderly parents living in the home and fostering teenage nieces. If continued uncontrolled anxiety, recommend discussing buspirone with PCP. Patient seen and examined prior to discharge. Physical assessment as noted below. Patient is stable for discharge with follow up recommendations as noted above. This patient was seen by CHAYITO Ruvalcaba under the supervision of Dr. Hernandez. Time spent examining patient, reviewing data and subsequent management of care: 25 minutes Physical Exam Const alert, oriented x3 and no apparent distress Orientation / Consciousness: awake, oriented to person, oriented to place and oriented to time HEENT normocephalic and moist oral mucous membranes Eyes PERRL, EOMs intact bilaterally and conjunctivae normal Neck no lymphadenopathy Resp normal respiratory effort and clear to auscultation bilaterally Cardio regular rate, regular rhythm and no murmurs Peripheral Pulses: pulses 2+ throughout GI normal to inspection, nondistended, normoactive bowel sounds, non-tender and non-distended Extremity normal to inspection Skin no rashes or lesions noted Lesions: no lesions Rashes: no rashes Trauma: no lacerations or abrasions Neuro CN's II-XII intact bilaterally, no focal motor deficits, no sensory deficits noted and deep tendon reflexes 2+ bilaterally Psych mental status grossly normal and affect normal Weight / BMI Weight Weight: 214 lb 12.8 oz Body Mass Index (BMI) 33.6 ABG / Lab / Microbiology Data Result Diagrams: 03/13/22 02:27 03/13/22 02:27 Laboratory: Laboratory Results - last 24 hr 03/12/22 22:50: WBC 12.1 H, RBC 4.79, Hgb 14.4, Hct 42.7, MCV 89.1, MCH 30.1, MCHC 33.7, RDW Std Deviation 42.7, RDW Coeff of Mariela 13.1, Plt Count 291, MPV 10.7, Immature Gran % (Auto) 0.800, Neut % (Auto) 58.2, Lymph % (Auto) 24.9, [facility] % (Auto) 8.8, Eos % (Auto) 6.1 H, Baso % (Auto) 1.2 H, Absolute Neuts (auto) 7.0, Absolute Lymphs (auto) 3.01, Nucleated RBC % 0 03/12/22 22:50: Sodium 141, Potassium 3.4 L, Chloride 110 H, Carbon Dioxide 26.0, Anion Gap 5, BUN 14, Creatinine 1.10, Estim Creat Clear Calc 65.93, Est GFR (MDRD) Af Amer 87, Est GFR (MDRD) Non-Af 72, BUN/Creatinine Ratio 12.7, Glucose 188 H, Calcium 9.0, Troponin I High Sens 5 03/13/22 01:20: Troponin I High Sens 6 03/13/22 02:27: WBC 11.5 H, RBC 4.83, Hgb 14.3, Hct 43.8, MCV 90.7, MCH 29.6, MCHC 32.6, RDW Std Deviation 43.5, RDW Coeff of Mariela 13.1, Plt Count 290, MPV 10.7, Immature Gran % (Auto) 0.300, Neut % (Auto) 52.1, Lymph % (Auto) 27.0, [facility] % (Auto) 12.8 H, Eos % (Auto) 6.8 H, Baso % (Auto) 1.0, Absolute Neuts (auto) 6.0, Absolute Lymphs (auto) 3.11, Nucleated RBC % 0 08/02/22 02:27: PT 12.3, INR 1.0 03/13/22 02:27: Sodium 143, Potassium 3.7, Chloride 114 H, Carbon Dioxide 27.0, Anion Gap 2 L, BUN 12, Creatinine 0.77, Estim Creat Clear Calc 94.19, Est GFR (MDRD) Af Amer 132, Est GFR (MDRD) Non-Af 109, BUN/Creatinine Ratio 15.6, Glucose 116 H, Calcium 8.8, Phosphorus 3.4, Magnesium 2.2 03/13/22 02:27: Troponin I High Sens 6 Radiography Diagnostic Testing: Radiology Impression Chest X-Ray 03/12/22 23:05 IMPRESSION: 1. Mild stable bibasilar atelectasis. 2. No acute process noted. Electronically Signed: Connor Ray MD at 23:23 EDT , D/C Instructions Discharge Diet: Low fat / Low cholesterol Additional Activity Instructions: Follow post cath instructions Call your doctor if your incision/area has: Continuous Slow Oozing, Sudden Increased Bleeding, Increased Pain/ Swelling, Increased Redness, Foul Smelling Discharge and Swelling at the incision site Call your doctor if you observe: Shortness of breath, Dizziness and Chest pain Meaningful Use Info Meaningful Use Diagnoses (Choose all that apply): None applicable Discharge Plan Admission Admit Date/Time: 03/12/22 23:48 Primary Reason for Your Visit: Chest pain Attending Provider: Sandro Hernandez Primary Care Provider: Geoffrey Wiggins Consulting Providers: William Pacheco ; Desmond Gonsalez Instructions Additional Instructions / Restrictions: Recommend discussing Buspirone with PCP if you continue to have uncontrolled anxiety. Discharge Orders/Prescriptions Prescriptions: Continued atorvastatin 80 mg tablet 80 mg PO QHS Qty: 90 3RF carvedilol 3.125 mg tablet 3.125 mg PO BID Qty: 180 4RF lisinopril 10 mg tablet 10 mg PO DAILY Qty: 90 3RF nitroglycerin 0.4 mg tablet, sublingual 0.4 mg SUBLINGUAL Q5M PRN (Reason: Chest Pain) Qty: 25 6RF ticagrelor 90 mg tablet 90 mg PO BID Qty: 180 3RF Fish Oil 300-500 mg capsule 1 cap PO DAILY cholecalciferol (vitamin D3) 25 mcg (1,000 unit) capsule 25 mcg PO DAILY magnesium 250 mg tablet 250 mg PO DAILY ascorbic acid (vitamin C) 250 mg tablet 250 mg PO DAILY mecobalamin (vitamin B12) 5,000 mcg tablet,disintegrating 5,000 mcg PO DAILY garlic 300 mg capsule 300 mg PO DAILY multivitamin 1 EACH tablet 1 tab PO DAILY loratadine 10 MG tablet 5 mg PO DAILY aspirin 81 MG tablet,delayed release (DR/EC) 81 mg PO DAILY pantoprazole 40 mg tablet,delayed release (DR/EC) 40 mg PO QDAY Qty: 90 3RF Referrals / Follow Up: Geoffrey Wiggins MD [Primary Care Provider] - In 1 Week Joce Ruiz NP, NP-C [Med Staff - [facility]] - 04/13/22 10:00 am Disposition Disposition (needs filled in before D/C Order can be placed): Home, Self Care Documented by User: Dr. Sandro Hernandez MD 03/13/22 14:42 Providers Date of Admission: 03/12/22 Reason For Visit: ACUTE CORONARY SYNDROME Diagnosis Discharge Diagnosis (1) Chest pain: Status: Acute Code(s): R07.9 - Chest pain, unspecified (2) History of coronary artery stent placement: Status: Resolved Code(s): Z95.5 - Presence of coronary angioplasty implant and graft (3) Essential (primary) hypertension: Status: Chronic Code(s): I10 - Essential (primary) hypertension (4) Hyperlipidemia: Status: Chronic Code(s): E78.5 - Hyperlipidemia, unspecified Qualifiers: Hyperlipidemia type: pure hypercholesterolemia Qualified Code(s): E78.00 - Pure hypercholesterolemia, unspecified; E78.0 - Pure hypercholesterolemia Medications at Discharge Home Medications loratadine 10 mg tablet 5 mg PO DAILY 08/21/15 multivitamin 1 tab PO DAILY 08/21/15 aspirin 81 mg tablet,delayed release 81 mg PO DAILY 09/14/15 ascorbic acid (vitamin C) 250 mg tablet 250 mg PO DAILY 11/09/21 cholecalciferol (vitamin D3) 25 mcg (1,000 unit) capsule 25 mcg PO DAILY 11/09/21 garlic 300 mg capsule 300 mg PO DAILY 11/09/21 magnesium 250 mg tablet 250 mg PO DAILY 11/09/21 mecobalamin (vitamin B12) 5,000 mcg disintegrating tablet 5,000 mcg PO DAILY 11/09/21 omega-3 fatty acids-fish oil 300 mg-500 mg capsule (Fish Oil) 1 cap PO DAILY 11/09/21 pantoprazole 40 mg tablet,delayed release 40 mg PO QDAY #90 tabs 02/20/22 atorvastatin 80 mg tablet 80 mg PO QHS #90 tabs 03/08/22 carvedilol 3.125 mg tablet 3.125 mg PO BID #180 tabs 03/08/22 lisinopril 10 mg tablet 10 mg PO DAILY #90 tabs 03/08/22 nitroglycerin 0.4 mg sublingual tablet 0.4 mg sublingual Q5M PRN Chest Pain #25 tabs 03/08/22 ticagrelor 90 mg tablet 90 mg PO BID #180 tabs 03/08/22 ABG / Lab / Microbiology Data Result Diagrams: 03/13/22 02:27 03/13/22 02:27 Discharge Plan Admission Admit Date/Time: 03/12/22 23:48 Primary Reason for Your Visit: Chest pain Attending Provider: Sandro Hernandez Primary Care Provider: Geoffrey Wiggins Consulting Providers: William Pacheco ; Desmond Gonsalez Instructions Additional Instructions / Restrictions: Recommend discussing Buspirone with PCP if you continue to have uncontrolled anxiety. Discharge Orders/Prescriptions Prescriptions: Continued atorvastatin 80 mg tablet 80 mg PO QHS Qty: 90 3RF carvedilol 3.125 mg tablet 3.125 mg PO BID Qty: 180 4RF lisinopril 10 mg tablet 10 mg PO DAILY Qty: 90 3RF nitroglycerin 0.4 mg tablet, sublingual 0.4 mg SUBLINGUAL Q5M PRN (Reason: Chest Pain) Qty: 25 6RF ticagrelor 90 mg tablet 90 mg PO BID Qty: 180 3RF Fish Oil 300-500 mg capsule 1 cap PO DAILY cholecalciferol (vitamin D3) 25 mcg (1,000 unit) capsule 25 mcg PO DAILY magnesium 250 mg tablet 250 mg PO DAILY ascorbic acid (vitamin C) 250 mg tablet 250 mg PO DAILY mecobalamin (vitamin B12) 5,000 mcg tablet,disintegrating 5,000 mcg PO DAILY garlic 300 mg capsule 300 mg PO DAILY multivitamin 1 EACH tablet 1 tab PO DAILY loratadine 10 MG tablet 5 mg PO DAILY aspirin 81 MG tablet,delayed release (DR/EC) 81 mg PO DAILY pantoprazole 40 mg tablet,delayed release (DR/EC) 40 mg PO QDAY Qty: 90 3RF Referrals / Follow Up: Geoffrey Wiggins MD [Primary Care Provider] - In 1 Week Joce Ruiz NP, VERENA-C [Med Staff - [facility]] - 04/13/22 10:00 am Disposition Disposition (needs filled in before D/C Order can be placed): Home, Self Care Charges/Coding Addendum Addendum: Addendum: Dr. Hernandez I personally examined the patient and reviewed the chart. I agree with the above. 61-year-old male with a history of hypertension hyperlipidemia as well as tobacco abuse, presents to the hospital with chest pain. He has had a previous heart stent in 2017 however this time he had a heart cath which demonstrated clean coronary arteries. I discussed with him the possibility of stress being a cause and his does note that he has been significantly anxious. An extensive conversations with him and his , it this does appear to be a situational anxiety and stress therefore and lieu of medications I recommended to do his best to eliminate the stress is leading to the situational anxiety. I discussed with him there is no changes to the medications at this time after discussing the situation with his line runner. They expressed understanding of the risk benefits of going home and would like to go home today. Clinical time spent in all aspects of patient care including discharge plannin minutes Visit Charges Inpatient E&M: 89031 Disch Hosp
--- NOTE | 2022-03-15 12:12 | CL.D_ITS ---
Patient Name: SIRISHA MCALLISTER Study Date: 03/13/2022 Performing: William Pacheco MD Ht: 67 inches 170 cm : 1960 Wt: 214.1 lbs 97 kg Age: 61 Gender: male BSA: 2.08 PROCEDURE(S) PERFORMED DC01-(20222)LHC/COR/LV IC10-(29054)FFR, CORONARY OR GRAFT, INITIAL VESSEL CLINICAL PROFILE AND INDICATIONS Indications: Suspected CAD Heart Failure: None Stress/Imaging Stress/Image Study Performed: No CAD Presentations: Symptom unlikely to be ischemic. CONCLUSIONS Disease noted in the proximal right coronary artery with previously placed stent in the distal right coronary artery noted to be patent LAD patent with Lcx mild disease. RECOMMENDATIONS Staged for FFR DESCRIPTION OF PROCEDURE The patient arrived to the procedure lab. The risks and benefits of the procedure as well as a full d escription of our services here and current unavailability of surgical backup were fully explained to the patient and/or their significant other prior to the catheterization. The Timeout was completed, verifying the correct patient and procedure. The patient's procedural site was prepped and draped in the usual fashion. Local anesthetic was given subcutaneously to right radial region with Lidocaine 2% . Using a modified Seldinger technique, arterial access was obtained via the right radial artery, a 6 Fr sheath was inserted. Left Coronary Artery selective angiography was performed in multiple views u sing a 5 Fr. 4.0 Mathews catheter. Right Coronary Artery selective angiography was then performed in mu ltiple views using a 5 Fr. 4.0 Mathews catheter. Left Coronary Artery selective angiography was perform ed in multiple views using a 5 Fr. JL4 catheter. Left Ventriculography was performed in PURDY projection using a 5 Fr. Pigtail catheter. LV to AO pullback pressures were then recorded. CORONARY ANGIOGRAPHY DOMINANCE: Right Dominant LEFT HEART ASSESSMENT Left Ventricular Ejection Fraction: by LV Gram 60 % Normal LV wall motion Normal Left Ventricular systolic function LEFT MAIN: Angiographically normal LEFT ANTERIOR DESCENDING ARTERY: Previously placed stent is patent CIRCUMFLEX ARTERY: Mild luminal irregularities less than 30% RIGHT CORONARY ARTERY: PROX RCA: 45 % Stenosis MID RCA: Previously placed stent is patent DISTAL RCA: Mild luminal irregularities COMPLICATIONS PROCEDURE MEDICATIONS Fentanyl 50 mcg IV Versed 1 mg IV Versed 1 mg IV Oxygen: 2 L/min via nasal cannula Baby Aspirin (81mg) 1 Tabs PO 03/13/2022 07:48:01 Brilinta 90 mg PO @ 03/13/2022 08:46:41 Heparin given IA 03/13/2022 08:26:44 Verapamil 2.5mg, Ntg 100mcgs, 3000 units of Heparin given IA 03/13/2022 08:26:44 SUMMARY OF HEMODYNAMIC DATA Time AIR REST ECG 07:46:05 Art 123/62 (86) 08:03:49 AO 119/73 (96) SA 08:28:13 LV 108/5, 9 08:43:06 LV 110/3, 7 08:43:15 LV 112/9, 12 08:44:02 LVp 111/8, 12 08:44:06 AOp 115/68 (90) 08:44:13 Signed By William Pacheco MD On 03/13/2022 09:04:58 William Pacheco MD
== END 2022-03-13 13:04 | disposition home or self-care (01) | DRG 287 ==
LOC: ED 23:13 → PCU 03-13 01:57
PROVIDERS: Admitting Provider Family Medicine; Emergency Provider Emergency Medicine; PCP Family Medicine; Visit Provider Family Medicine
DX: R07.9 Chest pain, unspecified (principal); E66.9 Obesity, unspecified; E78.00 Pure hypercholesterolemia, unspecified; I10 Essential (primary) hypertension; I25.10 Atherosclerotic heart disease of native coronary artery without angina pectoris; K21.9 Gastro-esophageal reflux disease without esophagitis; F17.210 Nicotine dependence, cigarettes, uncomplicated; Z95.5 Presence of coronary angioplasty implant and graft; F41.1 Generalized anxiety disorder; Z86.73 Personal history of transient ischemic attack (TIA), and cerebral infarction without residual deficits; Z79.82 Long term (current) use of aspirin; Z79.899 Other long term (current) drug therapy; Z68.33 Body mass index [BMI] 33.0-33.9, adult
CPT/HCPCS: 36415; 71045; 80048; 83735; 84100; 84484; 85025; 85610; 93005; 93458; 93571; 99152; 99153; 99285; 99406; J7030; Q9967; A4216; C1769; C1887; C1894

== ENCOUNTER → 2024-02-20 | Outpatient (CLI) | payer BC, SELFPAY ==
--- NOTE | 2024-02-20 08:56 | CDU_ITS ---
Reason For Study: Dizziness Rt. Velocities/BP Lt. Velocities/BP Prox CCA 100.3/14.6 cm/sec. Prox CCA 74.4/16.7 cm/sec. Mid CCA 109.1/17.9 cm/sec. Mid CCA 80.6/19.2 cm/sec. Dist CCA 88.3/16.8 cm/sec. Dist CCA 76.9/16.7 cm/sec. Prox ICA 52.6/12.5 cm/sec. Prox ICA 59.7/20.4 cm/sec. Mid ICA 63.1/21.2 cm/sec. Mid ICA 73.1/19.3 cm/sec. Dist ICA 76.8/16.3 cm/sec. Dist ICA 69.9/21.5 cm/sec. Rt. ICA/CCA = 0.70. Lt. ICA/CCA = 0.91. Prox ECA 103.6/10.2 cm/sec. Prox ECA 81.8/16.7 cm/sec. Rt. Vert. 39.3/7.2 cm/sec. Lt. Vert. 43.1/11 cm/sec. Right Extracranial There is intimal thickening but no significant atherosclerotic plaque noted in the right common carotid artery. There is intimal thickening but no significant atherosclerotic plaque noted in the right internal carotid artery. There is intimal thickening but no significant atherosclerotic plaque noted in the right external carotid artery. Antegrade flow is noted in the right vertebral artery. Left Extracranial There is intimal thickening but no significant atherosclerotic plaque noted in the left common carotid artery. There is homogeneous, smooth atherosclerotic plaque noted in the left internal carotid artery. There is intimal thickening but no significant atherosclerotic plaque noted in the left external carotid artery. Antegrade flow is noted in the left vertebral artery. Procedure Carotid Duplex 67204. This is a Carotid Duplex examination using B-mode, color flow and specral Doppler. Exam performed in department. VL/Carotid Duplex Ultrasound Interpretation Summary Normal right extracranial internal carotid. Mild (<50%) stenosis left extracranial internal carotid. Patent and antegrade vertebrals bilaterally. Ordering Physician: Joce Ruiz Referring Physician: Geoffrey Wiggins Performed By: Luma Mcgregor RVT and Student
--- NOTE | 2024-02-20 08:56 | ART_ITS ---
Reason For Study: Claudication Procedure A bilateral lower extremity continuous wave Doppler with analog waveform analysis,segmental pressures,and ankle brachial indexes without exercise. Left Segmental Pressures Left brachial= 118mmHg. Left posterior tibial artery = 113mmHg. Left dorsalis pedis artery = 118mmHg. The left dorsalis pedis waveforms are triphasic. The left posterior tibial artery waveforms are triphasic. Right Segmental Pressures Right brachial= 111mmHg. Right posterior tibial artery = 138mmHg. Right dorsalis pedis artery = 105mmHg. The right dorsalis pedis waveforms are triphasic. The right posterior tibial artery waveforms are triphasic. Indices The right ankle brachial index by the dorsalis pedis is 0.89. The right ankle brachial index by the posterior tibial artery is 1.17. The left ankle brachial index by the dorsalis pedis is 1.00. The left ankle brachial index by the posterior tibial artery is 0.96. VL/Lower Ext Art Exam w/o Exercis Interpretation Summary Right EVELIO 1.17, normal. Doppler/PVR waveforms of the right ankle normal at rest . Left EVELIO 1.00, normal. Doppler/PVR waveforms of the left ankle normal at rest. Ordering Physician: Joce Ruiz Referring Physician: Geoffrey Wiggins Performed By: Luma Mcgregor RVT and Student
== END | disposition home or self-care (01) ==
PROVIDERS: PCP Family Medicine; Referring Provider Nurse Practitioner Family; Visit Provider Nurse Practitioner Family
DX: I73.9 Peripheral vascular disease, unspecified (principal); I25.10 Atherosclerotic heart disease of native coronary artery without angina pectoris; I10 Essential (primary) hypertension; I65.22 Occlusion and stenosis of left carotid artery; R42 Dizziness and giddiness
CPT/HCPCS: 93880; 93923

== ENCOUNTER → 2024-02-26 | Outpatient (CLI) | payer BC, SELFPAY ==
--- NOTE | 2024-02-26 17:14 | STRESSREP ---
Stress Test Report Pharmacologic myocardial perfusion stress test. 63-year-old man with a history of chest pain Resting EKG demonstrates sinus rhythm with a rate of 82 bpm. Resting blood pressure is 120/82 mmHg. 0.4 mg of regadenoson was infused per usual protocol followed by rapid intravenous saline flush injection. Continuous EKG monitoring was performed. The maximum heart rate was 110 bpm which was 70% of max impacted heart rate the maximum workload was 1 metabolic equivalent. At rest there were no ST or T wave changes noted to suggest ischemia and at peak infusion nonspecific ST changes were noted which did not meet the criteria for ischemia. No clinical angina is noted. The final blood pressure was 132/80 mmHg. Myocardial perfusion protocol. 14 point mCi of technetium 99m sestamibi was injected at rest. 0.4 mg of regadenoson was infused per usual protocol. At peak infusion 44.4 mCi of technetium 99m sestamibi was injected stress images were obtained stress and rest images were reconstructed and compared in the short axis vertical long and horizontal long axis. Gated images were also obtained. Perfusion SPECT analysis: Review of the stress images demonstrate normal uptake of tracer noted in all areas of the myocardium. The resting images similar demonstrated normal uptake of tracer noted in all areas of the myocardium. No areas of reversibility are noted to suggest ischemia and no previous infarct is noted. Gated SPECT analysis: The gated ejection fraction is 78%. Conclusion: Normal pharmacologic myocardial perfusion stress test. Preserved ejection fraction.
== END | disposition home or self-care (01) ==
LOC: CVS 06:56
PROVIDERS: PCP Family Medicine; Referring Provider Nurse Practitioner Family; Visit Provider Nurse Practitioner Family
DX: I25.10 Atherosclerotic heart disease of native coronary artery without angina pectoris (principal); R07.9 Chest pain, unspecified; R06.02 Shortness of breath
CPT/HCPCS: 78452; 93017; A9500; A4216; J2785